=== PATIENT | male | born 1965 | race Caucasian/White ===

== ENCOUNTER 2017-08-29 21:22 | Emergency (ER) | payer SELFPAY ==
[2017-08-29 21:23] VITALS: BP 164/128; O2SAT 71; BMI 25.9
--- NOTE | 2017-08-29 21:31 | ED.RN ---
2130 DR. NAVA STOPPED CPR AND PRONOUNCED PT . NO CARDIAC ACTIVITY WITH ULTRASOUND.
--- NOTE | 2017-08-29 22:10 | ED.DCSUM_ITS ---
- ER Visit Summary Date of Service: 08/29/17 Chief Complaint: Full arrest History of Present Illness: The patient is a 52 M presenting with EMS as full arrest. Patient was with family who stated that he started to not feel well and then became unresponsive. Bystander CPR was started and EMS was called. On their arrival CPR was continued, chest compressions with Audi. He was intubated per EMS and IO was placed. In route to the hospital he was given a total of 3 epinephrine, 1 bicarb, Narcan. He had return of spontaneous circulation ?2. Total downtime is estimated to be approximately 35 minutes. On arrival to the ED he now has no pulse and CPR is in progress. Physical Examination: No pulse. No spontaneous respirations. Unresponsive HEENT exam pupils fixed and dilated. Neck is supple. Lungs are equal with bagging Heart no cardiac activity Abdomen is soft nondistended. Extremities are unremarkable. Skin is warm and dry. Unresponsive Remainder of exam is unremarkable. Emergency Department Course and Treatment: CPR is continued. Patient is in PEA. He was given an additional 2 epinephrine in the emergency department. On repeat pulse check he has no pulse. Bedside ultrasound shows no cardiac activity. Patient was pronounced in the emergency department. Family is at bedside. Disposition: Impression: Cardiopulmonary arrest This note was generated with [employer] dictation software. It may contain incorrect words, spelling, and punctuation that were not noted in review of the chart prior to signing ED Disposition - Plan for ED Patient: Chief Complaint: CPR Referrals: Care Physician,No Primary [Primary Care Provider] -
== END 2017-08-30 03:20 ==
PROVIDERS: Emergency Provider Emergency Medicine
DX: I46.9 Cardiac arrest, cause unspecified (principal)
CPT/HCPCS: 31500; 92950; 99283; J7030; A4216